=== PATIENT | male | born 1975 | race Native Hawaiian/Other Pacific Islander ===

== ENCOUNTER 2016-12-02 15:43 | Outpatient (CLI) | payer OTHER | END 2016-12-02 15:59 | disposition short-term general hospital (02) | LOC: AMB 15:43 | DX: M54.2 Cervicalgia (principal); M79.601 Pain in right arm; W06.XXXA Fall from bed, initial encounter; Y92.092 Bedroom in other non-institutional residence as the place of occurrence of the external cause | CPT/HCPCS: A0425; A0427 ==